=== PATIENT | male | born 1990 | race Caucasian/White ===

== ENCOUNTER 2017-06-19 16:53 | Emergency (ER) | payer OTHER ==
[2017-06-19 17:17] VITALS: BP 112/69; PULSE 73; TEMP 97.5; BMI 29.1
--- NOTE | 2017-06-19 18:13 | PDOC ---
History of Present Illness - General Chief Complaint: Cold Symptoms Stated Complaint: S.O.B Time Seen by Provider: 06/19/17 17:41 History Source: Patient - History of Present Illness Timing/Duration: reports: this morning Severity: reports: mild Associated Symptoms: reports: cough, shortness of breath, wheezing Past History - Past Medical History Allergies/Adverse Reactions: Allergies Allergy/AdvReac Type Severity Reaction Status Date / Time No Known Allergies Allergy Verified 06/19/17 17:14 Home Medications: Ambulatory Orders Albuterol Sulfate Inhaler - [Ventolin HFA Inhaler -] 1 - 2 inh PO Q4H #1 inhaler 06/19/17 COPD: No DVT: No Dementia: No Diabetes: No - Surgical History Abdominal Surgery: Yes Appendectomy: Yes - Immunization History Immunization Up to Date: Yes - Suicide/Smoking/Psychosocial Hx Smoking History: Never smoked Have you smoked in the past 12 months: No Information on smoking cessation initiated: No Hx Alcohol Use: No Drug/Substance Use Hx: No Substance Use Type: None Review of Systems - Review of Systems Constitutional: No: Chills, Fever Respiratory: Yes: Cough, Shortness of Breath, Wheezing *Physical Exam - Vital Signs Last Vital Signs Temp Pulse Resp BP Pulse Ox 97.5 F L 73 17 112/69 98 06/19/17 17:14 06/19/17 17:14 06/19/17 17:14 06/19/17 17:14 06/19/17 17:14 - Physical Exam General Appearance: Yes: Appropriately Dressed. No: Apparent Distress HEENT: positive: Normal Voice Neck: positive: Supple. negative: Lymphadenopathy (R), Lymphadenopathy (L) Respiratory/Chest: positive: Lungs Clear, Normal Breath Sounds. negative: Respiratory Distress Cardiovascular: positive: Regular Rate, S1, S2 Integumentary: positive: Dry, Warm Neurologic: positive: Alert, Normal Mood/Affect Medical Decision Making - Medical Decision Making 06/19/17 18:27 26 yo M, no sig hx, non-smoker, here w/ dry cough w/ sneezing, R eye itching, mild wheezing and possible SOB that started today. No f/c. States he gets these episodes yearly which usually resolves per pt. Has never seeked medical treatment in past. See exam Viral vs allergic URI w/ possible bronchospasm Non -smoker No f/c Stable and well samuel w/ clear lungs -dc w/ supportive ts and arx for alb pump -reasons to return d/w pt 06/19/17 18:34 *DC/Admit/Observation/Transfer Diagnosis at time of Disposition: Bronchospasm URI (upper respiratory infection) Qualifiers: URI type: unspecified viral URI Qualified Code(s): J06.9 - Acute upper respiratory infection, unspecified - Discharge Dispostion Disposition: HOME Condition at time of disposition: Good - Prescriptions Prescriptions: Albuterol Sulfate Inhaler - [Ventolin HFA Inhaler -] 1 - 2 inh PO Q4H #1 inhaler - Referrals Referrals: Marbin Parkinson MD [Primary Care Provider] - - Patient Instructions Printed Discharge Instructions: DI for Viral Upper Respiratory Infection -- Adult Additional Instructions: You may have bronchospasm which is tightening of your airways which can be caused by a number of reasons including upper respiratory infection and allergies, etc. Use pump as directed for sob/wheezing and return for worsening of symptoms Please follow up with your PMD as needed - Post Discharge Activity
== END 2017-06-19 18:31 | disposition home or self-care (01) ==
LOC: JERFT 16:53
DX: J06.9 Acute upper respiratory infection, unspecified (principal); J98.01 Acute bronchospasm
CPT/HCPCS: 99281-25